=== PATIENT | male | born 1945 | race American Indian/Alaskan Native ===

== ENCOUNTER 2017-03-30 07:51 | Observation (INO) | payer MEDICARE ==
[2017-03-30 08:39] LABS: Hematocrit 32.2 % (35.5-45.6); Hemoglobin 10.9 gm/dl (11.8-15.2); Mean Corpuscular HGB Conc 34 % (32-34); Mean Corpuscular Hemoglobin 33 pg (28-32); Mean Corpuscular Volume 99 fl (84-94); Platelet Count 180 K/mm3 (140-440); Red Blood Count 3.26 M/mm3 (3.65-5.03); Red Cell Distribution Width 14.8 % (13.2-15.2)
[2017-03-30 08:49] LABS: INR 1.1 (0.87-1.13)
[2017-03-30 08:52] LABS: Calcium 8.2 mg/dL (8.4-10.2)
[2017-03-30] MEDS: ECOTRIN PO NR ×2 (08:52→09:15)
[2017-03-30] MEDS ORDERED: NACL 0.9% 500 ML 500 ML IV SCH (09:00)
[2017-03-30 09:54] LABS: Basophils % (Manual) 0 % (0.0-1.8); Platelet Estimate Consistent w Auto; RBC Morphology Normal; Total Cells Counted 100
[2017-03-30] MEDS ORDERED: HEPARIN/NS 5000 UNIT/500ML(CATH LAB) 1,000 ML IR ONE (10:27)
[2017-03-30] MEDS: SUBLIMAZE ONE ×2 (10:43→11:08)
[2017-03-30] MEDS: VERSED ONE ×2 (10:44→11:08)
[2017-03-30] MEDS: XYLOCAINE 2% INFILTRATI ONE ×2 (10:45→11:09)
[2017-03-30] MEDS ORDERED: ADRENALIN ONE (11:05)
[2017-03-30] MEDS ORDERED: ATROPINE 0.1% (CARDIAC) ONE (11:05)
--- NOTE | 2017-03-30 11:43 | Discharge Summary ---
Short Stay Discharge Plan Activity: advance as tolerated Weight Bearing Status: Partial Weight Bearing Diet: low fat, low cholesterol, low salt Wound: keep clean and dry Special Instructions: no heavy lifting (3 days) Follow up with: RADHA RANGEL MD [Primary Care Provider] - 7 Days PRINCESS CAMPBELL MD [Staff Physician] - 7 Days Prescriptions: Aspirin EC [Aspirin Enteric Coated TAB] 325 mg PO QDAY #30 tablet.
--- NOTE | 2017-03-30 13:06 | Cardiac Catherization Report ---
CARDIAC CATHETERIZATION REPORT REASON FOR PROCEDURE: Abnormal thallium stress test. PROCEDURE: The patient was prepped and draped in a sterile fashion after informed consent. The right femoral artery was entered using Seldinger technique followed by placement of a 6-[place] sheath. Selective left and right coronary angiography was performed. A #4 left Mary Lou catheter and a #4 right Mary Lou were used for selective coronary angiography. The pigtail catheter was used for left ventricle angiography. The catheters were removed, sheath removed, and hemostasis achieved using manual compression. The patient was returned to the postprocedure unit in stable condition. There were no complications. FINDINGS: HEMODYNAMICS: Left ventricle end diastolic pressure was 30, following coronary angiography. Ascending aortic pressure was 129/69. There was no significant pressure gradient on pullback across the aortic valve. CORONARY ANGIOGRAPHY: The left main coronary artery contained mild irregularities. The left anterior descending artery contained a complex, 70% to 80% stenosis of its proximal segment, involving the origin of a large first diagonal branch. Following this, there was a long, complex 95% stenosis of the mid LAD. The circumflex artery was occluded in its mid segment. This was a long segment of chronic total occlusion of this vessel. A large bifurcating mid obtuse marginal branch was reconstituted in its distal segment by left to left collaterals. The right coronary artery was dominant. This vessel was similarly occluded in its mid segment. This again was a long segment of chronic total occlusion. The distal right coronary artery filled by collaterals from the left coronary system. The left ventricle was moderately to severely dilated. There was severe left ventricular systolic dysfunction, diffuse hypokinesis. Left ventricular ejection fraction was estimated at 30%. CONCLUSION: 1. Severe, complex 3-vessel coronary artery disease. 2. Ischemic cardiomyopathy with severe left ventricular systolic dysfunction, ejection fraction of 30%. RECOMMENDATION: Coronary artery bypass surgery. JOB# [id number] CA/NTS
--- NOTE | 2017-03-30 16:14 | Event Note ---
Date: 03/30/17 H&P obtained from the office. Patient presented for an elective cardiac cath for abnormal thallium stress test. A cardiac cath was completed today which showed severe, complex 3 vessel coronary artery disease. Severe LV systolic dysfunction, EF 30%. Patient has been recommended for CT surgical evaluation for coronary bypass and awaits transfer to [place].
[2017-03-30] MEDS ORDERED: RENVELA PO SCH (16:30)
[2017-03-30] MEDS ORDERED: ROBITUSSIN PO ONE (21:02)
[2017-03-30 21:37] VITALS: BP 165/91
[2017-03-30] MEDS ORDERED: PRAVACHOL PO SCH (22:00)
[2017-03-30] MEDS ORDERED: NORMODYNE PO SCH (22:00)
[2017-03-30] MEDS ORDERED: NON-FORMULARY (Simvastatin 40 MG) PO SCH (22:00)
[2017-03-31] MEDS ORDERED: PROCARDIA XL PO SCH (10:00)
[2017-03-31] MEDS ORDERED: NON-FORMULARY (Nifedipine [Nifedipine Er] 90 MG) PO SCH (10:00)
[2017-03-31] MEDS ORDERED: LOSARTAN POTASSIUM 100 MG PO SCH (10:00)
[2017-03-31] MEDS ORDERED: ASPIRIN PO SCH (10:00)
[2017-03-31] MEDS ORDERED: LOVENOX SUB-Q SCH (10:00)
[2017-03-31] MEDS ORDERED: COZAAR PO SCH (10:00)
== END 2017-03-30 23:00 | disposition other institution (70) ==
LOC: CATHLABREC 07:51 → 4A 15:45
PROVIDERS: ADMIT Internal Medicine Cardiovascular Disease; ATTEND Internal Medicine
DX: I25.10 Atherosclerotic heart disease of native coronary artery without angina pectoris (principal); I13.2 Hypertensive heart and chronic kidney disease with heart failure and with stage 5 chronic kidney disease, or end stage renal disease; N18.5 Chronic kidney disease, stage 5; I50.9 Heart failure, unspecified; Z79.899 Other long term (current) drug therapy
CPT/HCPCS: 36415; 36600; 80048; 82803; 82962; 85007; 85025; 85610; 85730; 93005; 93010; 93453; 93458; 94660; A9270; C1894; G0378; J1644; J2250; J3010; J7040; J0171; J0461; Q9967